=== PATIENT | male | born 1940 | race Caucasian/White ===

== ENCOUNTER 2016-07-29 11:42 | Observation (INO) | payer OTHER ==
[~2016-07-29] VITALS: Ht 182.9 cm; Wt 88.1 kg
[~2016-07-29 11:42] MED LIST: ADVAIR; ADVAIR 250/501 DISK IH; ADVAIR 500/501 DISK IH; ALAVERT10 MG PO; ALBUTEROL2.5 MG/3 M IH; ALLERGY4 MG PO; ALLOPURINOL300 MG PO; ASACOL HD800 MG PO; ASACOL400 MG PO; ASPIRIN325 MG PO; ATORVASTATIN CA40 MG PO; AUGMENTIN875 MG PO; AZITHROMYCIN500 M1 PO; CALCIUM500 M4 PO; DAILY VALUE1 EACH PO; DAILY VITE1 EAC1 PO; DALIRESP500 MCG PO; DELTASONE20 MG PO; DILTIA XT120 MG PO; DILTIAZEM 24HR120 MG PO; DILTIAZEM ER120 MG PO; ECPIRIN325 M1 PO; FLOMAX0.4 MG PO; FLORA-Q CAPSUL1 EACH PO; FLORASTOR250 MG PO; LEVAQUIN750 MG PO; LIALDA1.2 GM PO; LORATADINE10 M2 PO; MAXIPIME1 GM IM; MUCINEX1200 MG PO; PREDNISONE10 MG PO; PREDNISONE20 MG PO; PREDNISONE5 MG PO; PROAIR HFA8.5 GM IH; PROVENTIL HFA6.7 GM IH; PROVENTIL,2.5 MG/0.5 IH; PROVENTIL,2.5 MG/3 M IH; RANITIDINE HCL300 M1 PO; RANITIDINE HCL300 MG PO; SPIRIVA RESPIMAT4 GM IH; SPIRIVA1 INHALATI IH; ST. JOSEPH ASPI81 MG PO; Singulair PO; TAMSULOSIN HCL0.4 MG PO; TESSALON200 MG PO; THEO-DUR,THEOC100 MG PO; THEOPHYLLINE; THEOPHYLLINE400 MG PO; VENTOLIN HFA18 GM IH; VENTOLIN5 MG/1 ML IH; VITAMIN D400 UNIT PO; ZITHROMAX250 MG PO; ZYLOPRIM100 MG PO
[2016-07-29 12:57] LABS: EOSINOPHIL (%) 0 % (0-5); IMMATURE GRANULOCYTE (%) 0.5 % (0.0-0.7); INSTRUMENT ABS NEUTROPHIL CT 7.5 K/uL; LYMPHOCYTE COUNT 0.6 K/uL (1.0-2.8); MCHC 33.7 G/DL (30.0-36.0); MCV 92.1 FL (86-99); MEAN PLAT.VOLUME 9.2 uM^3 (9.0-12.4); MONOCYTE (%) 5.9 % (3-12); MONOCYTE COUNT 0.5 K/uL (0-0.8); NEUTROPHIL (%) 85.9 % (45-76); NEUTROPHIL COUNT 7.5 K/uL (1.8-6.4); PLATELET COUNT 275 K/uL (156-360); RBC DIS.WIDTH-CV 12.7 % (11.8-14.6); RBC DIS.WIDTH-SD 42.7 % (39-53); RED BLOOD COUNT 4.67 M/uL (4.00-5.50); WHITE BLOOD COUNT 8.8 K/uL (4.1-10.2)
[2016-07-29 12:59] LABS: PTT 27.3 (25-32)
[2016-07-29 13:03] LABS: CHLORIDE 107 mEq/L (99-109); POTASSIUM 4.5 mEq/L (3.7-5.4); SODIUM 141 mEq/L (136-147)
[2016-07-29 13:04] LABS: GLUCOSE 96 mg/dL (70-99)
[2016-07-29 13:06] LABS: ANION GAP 10 MEQ/L (2-14)
[2016-07-29 13:08] LABS: GFR ESTIMATE (CALCULATED) > 59 mL/min/
[2016-07-29 13:09] LABS: UREA NITROGEN (BUN) 17 mg/dL (9-23)
[2016-07-29 13:10] LABS: TROP-I INTERPRETATION NEGATIVE; TROPONIN-I < 0.01 ng/mL (0.0-0.30)
[2016-07-29] MEDS ORDERED: DOXYCYCLINE HY100 MG PO (15:14)
[2016-07-29] MEDS ORDERED: BALSALAZIDE DI750 MG PO (15:15)
[2016-07-29] MEDS ORDERED: MUCINEX1200 MG PO (15:21)
[2016-07-29] MEDS ORDERED: TERBINAFINE HC250 MG PO (15:21)
[2016-07-29] MEDS ORDERED: BENADRYL25 MG PO (15:24)
[2016-07-29 15:41] VITALS: BP 135/68
[2016-07-29 20:20] VITALS: BP 138/61
[2016-07-29 23:44] VITALS: BP 148/67
[2016-07-30 03:57] VITALS: BP 113/63
[2016-07-30 07:25] VITALS: BP 137/76
[2016-07-30] MEDS ORDERED: PREDNISONE20 MG PO (08:24)
== END 2016-07-30 12:05 | disposition home or self-care (01) ==
LOC: EME 11:42 → 5WEST 14:36 → EDOF 14:36 → 5WEST 15:22
PROVIDERS: Emergency Medicine
DX: J44.1 Chronic obstructive pulmonary disease with (acute) exacerbation (principal); J96.10 Chronic respiratory failure, unspecified whether with hypoxia or hypercapnia; Z99.81 Dependence on supplemental oxygen; J61 Pneumoconiosis due to asbestos and other mineral fibers; I25.10 Atherosclerotic heart disease of native coronary artery without angina pectoris; I10 Essential (primary) hypertension; E78.5 Hyperlipidemia, unspecified; K21.9 Gastro-esophageal reflux disease without esophagitis; K52.3 Indeterminate colitis; E11.9 Type 2 diabetes mellitus without complications; Z87.891 Personal history of nicotine dependence
CPT/HCPCS: 71010; 80048; 83880; 84484; 85025; 85610; 85730; 93005; 94640; 94640 76; 99202; 99281; 99285; G0378; J1650; J2930; J7512

== ENCOUNTER → 2016-09-29 | Outpatient (CLI) | payer OTHER ==
[~2016-09-29] MED LIST changes: +BALSALAZIDE DI750 MG PO; +BENADRYL25 MG PO; +DOXYCYCLINE HY100 MG PO; +TERBINAFINE HC250 MG PO
== END | disposition home or self-care (01) ==
LOC: NUC 10:51
DX: J44.9 Chronic obstructive pulmonary disease, unspecified (principal); J92.9 Pleural plaque without asbestos
CPT/HCPCS: 71020; 78598; A9540; A9567

== ENCOUNTER → 2016-10-08 | Outpatient (CLI) | payer OTHER | END | disposition home or self-care (01) | LOC: EKG 10-02 13:00 | DX: I70.0 Atherosclerosis of aorta (principal); I05.8 Other rheumatic mitral valve diseases; I05.1 Rheumatic mitral insufficiency | CPT/HCPCS: 93306 ==

== ENCOUNTER 2016-11-20 06:02 | Day surgery (SDC) | payer OTHER ==
[~2016-11-20] VITALS: Ht 182.9 cm; Wt 82.5 kg
[~2016-11-20 06:02] MED LIST changes: +ALEVE220 M2 PO; +BENADRYL ALLERG25 MG PO; -BENADRYL25 MG PO; +CENTRUM SILVER1 EAC1 PO; -DAILY VITE1 EAC1 PO; +DILTIAZEM 24HR120 M2 PO; -DILTIAZEM ER120 MG PO; +LIPITOR40 MG PO; +MUCINEX DM ER1 EACH PO; +PROTONIX40 MG PO; +TYLENOL EXTRA500 MG PO
[2016-11-20 06:44] VITALS: BP 144/66
[2016-11-20 11:13] VITALS: BP 119/60
[2016-11-20 12:04] VITALS: BP 109/58
== END 2016-11-20 13:10 | disposition home or self-care (01) ==
LOC: SDC 06:02
PROC: 08B53ZZ Excision of Left Vitreous, Percutaneous Approach (ICD-10-PCS; principal; 2016-11-20)
DX: H33.002 Unspecified retinal detachment with retinal break, left eye (principal); J44.9 Chronic obstructive pulmonary disease, unspecified; N40.0 Benign prostatic hyperplasia without lower urinary tract symptoms; I25.10 Atherosclerotic heart disease of native coronary artery without angina pectoris; Z87.891 Personal history of nicotine dependence; Z82.49 Family history of ischemic heart disease and other diseases of the circulatory system; Z83.3 Family history of diabetes mellitus; Z79.82 Long term (current) use of aspirin
CPT/HCPCS: J0690; J0713; J3300

== ENCOUNTER 2017-03-09 16:24 | Inpatient (IN) | payer OTHER ==
[~2017-03-09] VITALS: Ht 182.9 cm; Wt 84.5 kg
[~2017-03-09 16:24] MED LIST changes: -SPIRIVA RESPIMAT4 GM IH; +SPIRIVA18 MCG IH
[2017-03-09 18:23] LABS: EOSINOPHIL (%) 0 % (0-5); HEMATOCRIT 39.3 % (38.0-50.0); IMMATURE GRANULOCYTE (%) 0.4 % (0.0-0.7); INSTRUMENT ABS NEUTROPHIL CT 6.1 K/uL; LYMPHOCYTE COUNT 0.5 K/uL (1.0-2.8); MCHC 33.8 G/DL (30.0-36.0); MCV 91.6 FL (86-99); MEAN PLAT.VOLUME 8.9 uM^3 (9.0-12.4); MONOCYTE (%) 9.6 % (3-12); MONOCYTE COUNT 0.7 K/uL (0-0.8); NEUTROPHIL (%) 82.3 % (45-76); NEUTROPHIL COUNT 6.1 K/uL (1.8-6.4); PLATELET COUNT 281 K/uL (156-360); RBC DIS.WIDTH-CV 12.3 % (11.8-14.6); RBC DIS.WIDTH-SD 41.1 % (39-53); RED BLOOD COUNT 4.29 M/uL (4.00-5.50); WHITE BLOOD COUNT 7.4 K/uL (4.1-10.2)
[2017-03-09 18:33] LABS: CHLORIDE 104 mEq/L (99-109)
[2017-03-09 18:34] LABS: SODIUM 140 mEq/L (136-147)
[2017-03-09 18:35] LABS: GLUCOSE 120 mg/dL (70-99)
[2017-03-09 18:37] LABS: ANION GAP 8 MEQ/L (2-14)
[2017-03-09 18:39] LABS: GFR ESTIMATE (CALCULATED) > 59 mL/min/
[2017-03-09 18:40] LABS: UREA NITROGEN (BUN) 12 mg/dL (9-23)
[2017-03-09 18:44] LABS: TROP-I INTERPRETATION NEGATIVE; TROPONIN-I < 0.01 ng/mL (0.0-0.30)
[2017-03-09 23:15] VITALS: BP 129/68
[2017-03-10 03:15] VITALS: BP 112/67
[2017-03-10 07:49] VITALS: BP 136/62
[2017-03-10 11:50] VITALS: BP 129/63
[2017-03-10 15:58] VITALS: BP 106/60
[2017-03-10 20:42] VITALS: BP 119/56
[2017-03-10 23:39] VITALS: BP 121/56
[2017-03-11 04:25] VITALS: BP 112/59
[2017-03-11 06:31] LABS: EOSINOPHIL (%) 0 % (0-5); HEMATOCRIT 35.9 % (38.0-50.0); IMMATURE GRANULOCYTE (%) 0.5 % (0.0-0.7); IMMATURE GRANULOCYTE COUNT 0.1 K/uL; INSTRUMENT ABS NEUTROPHIL CT 12.5 K/uL; LYMPHOCYTE COUNT 0.5 K/uL (1.0-2.8); MCH 31.5 PG (29.0-34.0); MCV 92.8 FL (86-99); MEAN PLAT.VOLUME 9.4 uM^3 (9.0-12.4); MONOCYTE (%) 2.4 % (3-12); MONOCYTE COUNT 0.3 K/uL (0-0.8); NEUTROPHIL (%) 93.6 % (45-76); NEUTROPHIL COUNT 12.5 K/uL (1.8-6.4); PLATELET COUNT 297 K/uL (156-360); RBC DIS.WIDTH-CV 12.4 % (11.8-14.6); RBC DIS.WIDTH-SD 41.9 % (39-53); RED BLOOD COUNT 3.87 M/uL (4.00-5.50); WHITE BLOOD COUNT 13.3 K/uL (4.1-10.2)
[2017-03-11 06:53] LABS: ALKALINE PHOSPHATASE 97 IU/L (3-129); ANION GAP 5 MEQ/L (2-14); CHLORIDE 106 MEQ/L (99-109); GFR ESTIMATE (CALCULATED) > 59 mL/min/; GLUCOSE 162 mg/dL (70-99); SAMPLE HEMOLYSIS CHECK 0; SAMPLE ICTERIC CHECK 0; SAMPLE LIPEMIA CHECK 0; SODIUM 141 MEQ/L (136-147); TOTAL BILIRUBIN 0.3 MG/DL (0.0-1.0); UREA NITROGEN (BUN) 19 mg/dL (9-23)
[2017-03-11 07:01] LABS: POTASSIUM 5.2 MEQ/L (3.7-5.4)
[2017-03-11] MEDS ORDERED: AUGMENTIN875 MG PO (10:00)
[2017-03-11 11:56] VITALS: BP 136/64
== END 2017-03-11 14:05 | disposition home or self-care (01) | DRG 191 ==
LOC: EME 16:24 → EDOF 21:41 → 5SOUTH 21:41 → ENRESERV 21:55 → 5SOUTH 23:05
PROVIDERS: Emergency Medicine; Hospitalist
DX: J44.1 Chronic obstructive pulmonary disease with (acute) exacerbation (principal); J96.11 Chronic respiratory failure with hypoxia; I10 Essential (primary) hypertension; E78.5 Hyperlipidemia, unspecified; K21.9 Gastro-esophageal reflux disease without esophagitis; T17.890A Other foreign object in other parts of respiratory tract causing asphyxiation, initial encounter; J61 Pneumoconiosis due to asbestos and other mineral fibers; J60 Coalworker's pneumoconiosis; I25.10 Atherosclerotic heart disease of native coronary artery without angina pectoris; M10.9 Gout, unspecified; K58.0 Irritable bowel syndrome with diarrhea; N40.0 Benign prostatic hyperplasia without lower urinary tract symptoms; Z85.828 Personal history of other malignant neoplasm of skin; Z99.81 Dependence on supplemental oxygen; Z79.899 Other long term (current) drug therapy; Z87.891 Personal history of nicotine dependence; Z87.01 Personal history of pneumonia (recurrent); Z79.82 Long term (current) use of aspirin; Z77.090 Contact with and (suspected) exposure to asbestos; Z80.0 Family history of malignant neoplasm of digestive organs; Z82.49 Family history of ischemic heart disease and other diseases of the circulatory system; Z83.3 Family history of diabetes mellitus; I25.2 Old myocardial infarction
CPT/HCPCS: 71010; 71275; 80048; 80053; 80198; 84484; 85025; 85379; 87502; 94640; 94640 76; 94644; 94760; 94799; 99202; 99281; 99285; J0692; J1644; J2920; J2930

== ENCOUNTER 2017-04-03 15:03 | Emergency (ER) | payer OTHER ==
[~2017-04-03] VITALS: Ht 182.9 cm; Wt 82.0 kg
[2017-04-03 15:47] LABS: HEMATOCRIT 41.2 % (38.0-50.0); MCH 31.1 PG (29.0-34.0); MCHC 33.5 G/DL (30.0-36.0); MCV 92.8 FL (86-99); MEAN PLAT.VOLUME 8.7 uM^3 (9.0-12.4); PLATELET COUNT 279 K/uL (156-360); RBC DIS.WIDTH-CV 12.4 % (11.8-14.6); RBC DIS.WIDTH-SD 42.4 % (39-53); RED BLOOD COUNT 4.44 M/uL (4.00-5.50); WHITE BLOOD COUNT 6.4 K/uL (4.1-10.2)
[2017-04-03 15:58] LABS: CHLORIDE 101 mEq/L (99-109); POTASSIUM 4.1 mEq/L (3.7-5.4); SODIUM 141 mEq/L (136-147)
[2017-04-03 15:59] LABS: GLUCOSE 95 mg/dL (70-99)
[2017-04-03 16:01] LABS: ANION GAP 9 MEQ/L (2-14)
[2017-04-03 16:03] LABS: GFR ESTIMATE (CALCULATED) > 59 mL/min/ (58.99-99999)
[2017-04-03 16:04] LABS: UREA NITROGEN (BUN) 11 mg/dL (9-23)
[2017-04-03] MEDS ORDERED: ZITHROMAX Z-PA250 MG PO (17:02)
[2017-04-03] MEDS ORDERED: AZITHROMYCIN250 MG1 PO (17:36)
[2017-04-03] MEDS ORDERED: PREDNISONE20 MG PO (17:37)
[2017-04-03 18:15] VITALS: BP 94/77
== END 2017-04-03 18:38 | disposition home or self-care (01) ==
LOC: EME 15:03
DX: J44.9 Chronic obstructive pulmonary disease, unspecified (principal); I10 Essential (primary) hypertension; K21.9 Gastro-esophageal reflux disease without esophagitis; I25.2 Old myocardial infarction; Z87.891 Personal history of nicotine dependence; Z85.828 Personal history of other malignant neoplasm of skin; Z88.1 Allergy status to other antibiotic agents; Z88.8 Allergy status to other drugs, medicaments and biological substances
CPT/HCPCS: 71020; 80048; 85027; 93005; 99281; 99284; J7512

== ENCOUNTER 2017-07-18 09:55 | Inpatient (IN) | payer OTHER ==
[~2017-07-18] VITALS: Ht 182.9 cm; Wt 77.7 kg
[~2017-07-18 09:55] MED LIST changes: +AZITHROMYCIN250 MG1 PO; +SPIRIVA RESPIMAT4 G1 IH; -SPIRIVA18 MCG IH; +ZITHROMAX Z-PA250 MG PO
[2017-07-18 11:41] LABS: HEMATOCRIT 38.4 % (38.0-50.0); HEMOGLOBIN 13.2 G/DL (12.5-16.6); MCH 31.3 PG (29.0-34.0); MCHC 34.4 G/DL (30.0-36.0); PLATELET COUNT 246 K/uL (156-360); RBC DIS.WIDTH-CV 12.8 % (11.8-14.6); RBC DIS.WIDTH-SD 42.5 % (39-53); RED BLOOD COUNT 4.22 M/uL (4.00-5.50); WHITE BLOOD COUNT 9.5 K/uL (4.1-10.2)
[2017-07-18 11:58] LABS: CHLORIDE 100 mEq/L (99-109); POTASSIUM 4.2 mEq/L (3.7-5.4); SODIUM 139 mEq/L (136-147)
[2017-07-18 12:00] LABS: GLUCOSE 99 mg/dL (70-99)
[2017-07-18 12:04] LABS: CREATININE 0.7 mg/dL (0.6-1.3); GFR ESTIMATE (CALCULATED) > 59 mL/min/ (58.99-99999)
[2017-07-18 12:05] LABS: UREA NITROGEN (BUN) 11 mg/dL (9-23)
[2017-07-18 21:25] VITALS: BP 142/68
[2017-07-18 23:35] VITALS: BP 116/65
[2017-07-19 03:09] VITALS: BP 145/68
[2017-07-19 06:00] LABS: HEMATOCRIT 41.4 % (38.0-50.0); HEMOGLOBIN 13.6 G/DL (12.5-16.6); MCHC 32.9 G/DL (30.0-36.0); MCV 91.4 FL (86-99); PLATELET COUNT 288 K/uL (156-360); RBC DIS.WIDTH-CV 12.5 % (11.8-14.6); RBC DIS.WIDTH-SD 42.1 % (39-53); RED BLOOD COUNT 4.53 M/uL (4.00-5.50); WHITE BLOOD COUNT 13.1 K/uL (4.1-10.2)
[2017-07-19 06:23] LABS: CHLORIDE 99 MEQ/L (99-109); CREATININE 0.8 MG/DL (0.6-1.3); GFR ESTIMATE (CALCULATED) > 59 mL/min/ (58.99-99999); POTASSIUM 4.4 MEQ/L (3.7-5.4); SODIUM 142 MEQ/L (136-147); UREA NITROGEN (BUN) 17 mg/dL (9-23)
[2017-07-19 06:25] LABS: GLUCOSE 190 mg/dL (70-99)
[2017-07-19 11:30] VITALS: BP 114/56
[2017-07-19 15:37] VITALS: BP 118/63
[2017-07-19 21:00] VITALS: BP 138/65
[2017-07-19 23:33] VITALS: BP 112/61
[2017-07-20 05:55] LABS: BASOPHIL (%) 0.1 % (0-1); EOSINOPHIL (%) 0 % (0-5); HEMATOCRIT 38.2 % (38.0-50.0); HEMOGLOBIN 12.6 G/DL (12.5-16.6); IMMATURE GRANULOCYTE (%) 0.6 % (0.0-0.7); LYMPHOCYTE (%) 1.9 % (15-42); LYMPHOCYTE COUNT 0.3 K/uL (1.0-2.8); MCH 30.2 PG (29.0-34.0); MCV 91.6 FL (86-99); MONOCYTE (%) 2.6 % (3-12); MONOCYTE COUNT 0.4 K/uL (0-0.8); NEUTROPHIL (%) 94.8 % (45-76); NEUTROPHIL COUNT 16.3 K/uL (1.8-6.4); PLATELET COUNT 292 K/uL (156-360); RBC DIS.WIDTH-CV 12.8 % (11.8-14.6); RBC DIS.WIDTH-SD 42.8 % (39-53); RED BLOOD COUNT 4.17 M/uL (4.00-5.50); WHITE BLOOD COUNT 17.2 K/uL (4.1-10.2)
[2017-07-20 06:23] LABS: CHLORIDE 102 MEQ/L (99-109); CREATININE 0.7 MG/DL (0.6-1.3); GFR ESTIMATE (CALCULATED) > 59 mL/min/ (58.99-99999); GLUCOSE 169 mg/dL (70-99); POTASSIUM 4.8 MEQ/L (3.7-5.4); SODIUM 139 MEQ/L (136-147); UREA NITROGEN (BUN) 21 mg/dL (9-23)
[2017-07-20 08:54] VITALS: BP 135/70
[2017-07-20 16:21] VITALS: BP 128/66
[2017-07-20 20:45] VITALS: BP 143/69
[2017-07-20 23:40] VITALS: BP 133/63
[2017-07-21 05:58] LABS: BASOPHIL (%) 0.1 % (0-1); EOSINOPHIL (%) 0 % (0-5); HEMATOCRIT 39.7 % (38.0-50.0); HEMOGLOBIN 12.9 G/DL (12.5-16.6); IMMATURE GRANULOCYTE (%) 0.8 % (0.0-0.7); LYMPHOCYTE (%) 2.7 % (15-42); LYMPHOCYTE COUNT 0.4 K/uL (1.0-2.8); MCH 29.6 PG (29.0-34.0); MCHC 32.5 G/DL (30.0-36.0); MCV 91.1 FL (86-99); MONOCYTE (%) 4.8 % (3-12); MONOCYTE COUNT 0.6 K/uL (0-0.8); NEUTROPHIL (%) 91.6 % (45-76); NEUTROPHIL COUNT 12.3 K/uL (1.8-6.4); PLATELET COUNT 319 K/uL (156-360); RBC DIS.WIDTH-CV 12.8 % (11.8-14.6); RBC DIS.WIDTH-SD 42.7 % (39-53); RED BLOOD COUNT 4.36 M/uL (4.00-5.50); WHITE BLOOD COUNT 13.5 K/uL (4.1-10.2)
[2017-07-21 05:59] LABS: CHLORIDE 101 MEQ/L (99-109); CREATININE 0.7 MG/DL (0.6-1.3); GFR ESTIMATE (CALCULATED) > 59 mL/min/ (58.99-99999); POTASSIUM 4.8 MEQ/L (3.7-5.4); SODIUM 141 MEQ/L (136-147); UREA NITROGEN (BUN) 17 mg/dL (9-23)
[2017-07-21 06:02] LABS: GLUCOSE 100 mg/dL (70-99)
[2017-07-21 07:45] VITALS: BP 136/75
[2017-07-21] MEDS ORDERED: PREDNISONE20 MG PO (10:57)
== END 2017-07-21 12:29 | disposition home or self-care (01) | DRG 190 ==
LOC: EME 09:55 → 3EAST 13:11 → EDOF 13:11 → ENRESERV 13:16 → EDOF 13:16 → ENRESERV 19:13 → 3EAST 21:15
PROVIDERS: Internal Medicine
DX: J44.1 Chronic obstructive pulmonary disease with (acute) exacerbation (principal); J96.21 Acute and chronic respiratory failure with hypoxia; J20.9 Acute bronchitis, unspecified; J44.0 Chronic obstructive pulmonary disease with (acute) lower respiratory infection; Z99.81 Dependence on supplemental oxygen; G47.33 Obstructive sleep apnea (adult) (pediatric); J60 Coalworker's pneumoconiosis; J92.0 Pleural plaque with presence of asbestos; I10 Essential (primary) hypertension; E78.5 Hyperlipidemia, unspecified; K21.9 Gastro-esophageal reflux disease without esophagitis; N40.0 Benign prostatic hyperplasia without lower urinary tract symptoms; I25.2 Old myocardial infarction; M10.9 Gout, unspecified; Z87.01 Personal history of pneumonia (recurrent); Z87.891 Personal history of nicotine dependence; Z85.828 Personal history of other malignant neoplasm of skin; Z83.3 Family history of diabetes mellitus
CPT/HCPCS: 36415; 71046; 80048; 80198; 85025; 85027; 93005; 94640; 94640 76; 94667; 94668; 94760; 94799; 99202; 99281; 99285; J1650; J2930; J7512

== ENCOUNTER 2017-08-26 19:14 | Emergency (ER) | payer OTHER ==
[~2017-08-26] VITALS: Ht 182.9 cm; Wt 85.8 kg
[2017-08-26 20:01] LABS: HEMATOCRIT 30.4 % (38.0-50.0); HEMOGLOBIN 10.7 G/DL (12.5-16.6); MCHC 35.2 G/DL (30.0-36.0); PLATELET COUNT 346 K/uL (156-360); RBC DIS.WIDTH-CV 12.8 % (11.8-14.6); RBC DIS.WIDTH-SD 42.1 % (39-53); RED BLOOD COUNT 3.34 M/uL (4.00-5.50); WHITE BLOOD COUNT 11.1 K/uL (4.1-10.2)
[2017-08-26 20:15] LABS: CHLORIDE 103 mEq/L (99-109); POTASSIUM 4.8 mEq/L (3.7-5.4); SODIUM 141 mEq/L (136-147)
[2017-08-26 20:16] LABS: GLUCOSE 161 mg/dL (70-99)
[2017-08-26 20:20] LABS: CREATININE 0.8 mg/dL (0.6-1.3); GFR ESTIMATE (CALCULATED) > 59 mL/min/ (58.99-99999)
[2017-08-26 20:21] LABS: UREA NITROGEN (BUN) 15 mg/dL (9-23)
[2017-08-26 20:24] LABS: TROP-I INTERPRETATION NEGATIVE; TROPONIN-I < 0.01 ng/mL (0.0-0.30)
[2017-08-26] MEDS ORDERED: PREDNISONE50 MG PO (21:10)
[2017-08-26] MEDS ORDERED: TESSALON PERLE100 MG PO (21:10)
[2017-08-26 22:37] VITALS: BP 108/64
== END 2017-08-26 22:40 | disposition home or self-care (01) ==
LOC: EME 19:14
PROVIDERS: Emergency Medicine
DX: J44.1 Chronic obstructive pulmonary disease with (acute) exacerbation (principal); Z99.81 Dependence on supplemental oxygen; Z87.891 Personal history of nicotine dependence; I25.2 Old myocardial infarction; I10 Essential (primary) hypertension; Z79.82 Long term (current) use of aspirin; Z85.828 Personal history of other malignant neoplasm of skin
CPT/HCPCS: 71045; 80048; 84484; 85027; 94644; 99281; 99285; J7512